=== PATIENT | male | born 1995 | race Two or more races ===

== ENCOUNTER 2021-06-22 18:14 | Emergency (ER) | payer OTHER ==
[2021-06-22 18:22] VITALS: BP 142/85; PULSE 72; TEMP 97; BMI 26.4
[2021-06-22 19:15] LABS: EPI CELLS 0 /uL (0-25.1); HYALINE CASTS 0 /uL (0-3.1); PH,URINE 5.5 (5.0-8.0); URINE APPEARANCE CLEAR; URINE BACTERIA 0 /uL (0-1359); URINE BILIRUBIN NEGATIVE (NEGATIVE); URINE COLOR YELLOW; URINE GLUCOSE (UA) NEGATIVE (NEGATIVE); URINE KETONE TRACE (NEGATIVE); URINE LEUK ESTERASE TRACE (NEGATIVE); URINE NITRITE NEGATIVE (NEGATIVE); URINE PROTEIN NEGATIVE (NEGATIVE); URINE RBC 1 /uL (0-23.9); URINE UROBILINOGEN 0.2 mg/dL (0.2-1.0); URINE WBC 1 /uL (0-25.8)
== END 2021-06-22 19:13 | disposition home or self-care (01) ==
LOC: JERFT 18:14
PROC: 3E023GC Introduction of Other Therapeutic Substance into Muscle, Percutaneous Approach (ICD-10-PCS; principal; 2021-06-22)
DX: R30.0 Dysuria (principal); R36.9 Urethral discharge, unspecified
CPT/HCPCS: 36415; 81003; 87086; 87491; 87591; 96372; 99284-25

== ENCOUNTER 2021-10-27 19:35 | Emergency (ER) | payer OTHER ==
[2021-10-27 19:48] VITALS: BP 119/72; PULSE 91; TEMP 98.8; BMI 27.8
[2021-10-27 21:38] LABS: URINE APPEARANCE CLEAR; URINE BILIRUBIN NEGATIVE (NEGATIVE); URINE COLOR YELLOW; URINE GLUCOSE (UA) NEGATIVE (NEGATIVE); URINE KETONE TRACE (NEGATIVE); URINE LEUK ESTERASE NEGATIVE (NEGATIVE); URINE NITRITE NEGATIVE (NEGATIVE); URINE PROTEIN TRACE (NEGATIVE); URINE UROBILINOGEN 0.2 mg/dL (0.2-1.0)
== END 2021-10-27 23:28 | disposition home or self-care (01) ==
LOC: JERFT 19:35
DX: R36.9 Urethral discharge, unspecified (principal)
CPT/HCPCS: 36415; 81003; 87086; 87491; 87591; 99284-25

== ENCOUNTER 2023-08-16 14:33 | Emergency (ER) | payer OTHER ==
[2023-08-16 14:42] VITALS: BP 135/85; PULSE 75; RESP 18; TEMP 98.7; BMI 27.1
[2023-08-16] MEDS ORDERED: ONDANSETRON 4 MG/2 ML VIAL ONE (15:13)
[2023-08-16] MEDS ORDERED: FAMOTIDINE 10 MG/ML VIAL IVPB ONE (15:13)
[2023-08-16] MEDS ORDERED: ACETAMINOPHEN INJECTION 100 ML IVPB ONE ×2 (15:17→15:29)
[2023-08-16] MEDS ORDERED: FAMOTIDINE 20 MG/50 ML IVPB 20 MG/50 ML MG IVPB ONE (15:17)
[2023-08-16] MEDS: SODIUM CHLORIDE 0.9% 500 ML INFUS.BAG IV ONE (15:36)
[2023-08-16] MEDS: ACETAMINOPHEN 1000 MG/100 ML BAG IVPB ONE (15:36)
[2023-08-16] MEDS: ONDANSETRON 4 MG/2 ML VIAL IVPUSH ONE (15:41)
[2023-08-16 15:42] LABS: BASO % 0.2 % (0-2.0); EOS % 2.3 % (0-4.5); HEMATOCRIT 51.9 % (35.4-49); LYMPH % 19.4 % (8-40); MCH 28.9 pg (25.7-33.7); MCHC 34.7 g/dl (32.0-35.9); MEAN CELL VOLUME 83.2 fl (80-96); MONO % 8.3 % (3.8-10.2); NEUT % 69.8 % (42.8-82.8); PLATELET COUNT 279 10^3/uL (134-434); RBC 6.24 M/mm3 (4.00-5.60); WHITE BLOOD COUNT 7.8 K/mm3 (4.0-10.0)
[2023-08-16] MEDS: FAMOTIDINE 20 MG/50 ML IVPB 20 MG/50 ML MG IVPB ONE (15:58)
[2023-08-16 16:02] LABS: POTASSIUM 4.1 mmol/L (3.5-5.1)
[2023-08-16 16:04] LABS: CALCIUM 9.9 mg/dL (8.5-10.1)
[2023-08-16 16:05] LABS: ALBUMIN 4.8 g/dl (3.4-5.0); BLOOD UREA NITROGEN 13.3 mg/dL (7-18); MAGNESIUM 2.1 mg/dL (1.8-2.4)
[2023-08-16 16:08] LABS: CREATININE 1.2 mg/dL (0.55-1.3)
[2023-08-16 16:09] LABS: BILIRUBIN,TOTAL 0.5 mg/dL (0.2-1)
[2023-08-16 16:10] LABS: TOT PROT 8.6 g/dl (6.4-8.2)
== END 2023-08-16 17:06 | disposition home or self-care (01) ==
LOC: JER 14:33
PROC: 3E033GC Introduction of Other Therapeutic Substance into Peripheral Vein, Percutaneous Approach (ICD-10-PCS; principal; 2023-08-16)
PROC: 3E030NZ Introduction of Analgesics, Hypnotics, Sedatives into Peripheral Vein, Open Approach (ICD-10-PCS; 2023-08-16)
PROC: 3E030GC Introduction of Other Therapeutic Substance into Peripheral Vein, Open Approach (ICD-10-PCS; 2023-08-16)
DX: R11.10 Vomiting, unspecified (principal); R19.7 Diarrhea, unspecified; R10.13 Epigastric pain
CPT/HCPCS: 36415; 80053; 83690; 83735; 85025; 96365; 96375; 99284-25; J0131

== ENCOUNTER 2024-03-29 09:45 | Emergency (ER) | payer OTHER ==
[2024-03-29 09:54] VITALS: BP 146/84; PULSE 58; RESP 20; TEMP 97.6; BMI 26.4
[2024-03-29] MEDS ORDERED: DOXYCYCLINE HYCLATE 100 MG CAPSULE PO ONE (11:10)
[2024-03-29 11:21] LABS: URINE APPEARANCE CLEAR; URINE BILIRUBIN NEGATIVE (NEGATIVE); URINE COLOR DK YELLOW; URINE GLUCOSE (UA) NEGATIVE (NEGATIVE); URINE KETONE TRACE (NEGATIVE); URINE LEUK ESTERASE NEGATIVE (NEGATIVE); URINE NITRITE NEGATIVE (NEGATIVE); URINE PROTEIN NEGATIVE (NEGATIVE)
[2024-03-29] MEDS: DOXYCYCLINE HYCLATE 100 MG CAPSULE PO ONE (11:27)
[2024-03-29 15:39] LABS: HIV INTERPRETATION NEGATIVE (NEGATIVE)
== END 2024-03-29 11:39 | disposition home or self-care (01) ==
LOC: JERFT 09:45
DX: R36.9 Urethral discharge, unspecified (principal)
CPT/HCPCS: 36415; 81003; 86803; 87086; 87389; 87491; 87591; 87661; 99284-25

== ENCOUNTER 2024-06-15 12:55 | Emergency (ER) | payer OTHER ==
[2024-06-15 13:10] VITALS: BP 135/86; RESP 19; TEMP 97.7; BMI 27.8
[2024-06-15] MEDS ORDERED: ONDANSETRON *ODT* 4 MG TABLET ONE (13:46)
[2024-06-15] MEDS: ONDANSETRON *ODT* 4 MG TABLET SL ONE (13:47)
[2024-06-15 14:05] VITALS: PULSE 56
== END 2024-06-15 14:47 | disposition home or self-care (01) ==
LOC: JER 12:55
DX: R11.2 Nausea with vomiting, unspecified (principal); R00.1 Bradycardia, unspecified; Z20.822 Contact with and (suspected) exposure to COVID-19
CPT/HCPCS: 0241U-QW; 99283-25; Q0162